=== PATIENT | female | born 1955 | race Caucasian/White ===

== ENCOUNTER 2021-08-11 07:03 | Day surgery (SDC) | payer OTHER ==
[~2021-08-11] VITALS: Ht 165.1 cm; Wt 68.2 kg
--- NOTE | ~2021-08-11 | OR ---
[facility] [address] [place], [place] [address] Draft DATE OF OPERATION: 08/11/2021 SURGEON: Clayton Wan MD PREOPERATIVE DIAGNOSIS: Chronic pansinusitis with polyposis. POSTOPERATIVE DIAGNOSIS: Chronic pansinusitis with polyposis. PROCEDURE: 1. Bilateral frontal ethmoidectomy, 29044-24. 2. Bilateral sphenoidotomies, 46111-19. 3. Bilateral maxillary antrostomies with removal of tissue, 71846-74. INDICATIONS: This 66-year-old female had sinus surgery by myself over 30 years ago. It was for the same reason. Progressively, the patient has suffered from asthma, allergies, congestion, polypoid degeneration and finely mason polyposis, which she could not breathe and had constant sinus infection or inflammation and exacerbation of asthma. The CT scan showed a picture of pansinusitis centered in the ethmoids and maxillary sinuses, but also sphenoid sinus blocked by the same process as well as the frontals. Because of medical failure to improve her lot, the patient was resubmitted to surgery. DESCRIPTION OF PROCEDURE: The patient was placed in the supine position, had an orotracheal intubation was placed under general anesthesia. Photographs were taken preoperative, intraoperative, postoperatively. Right side was the begun first after injecting 1 mL of 1% lidocaine with 1:100,000 epinephrine. The microdebrider was used right from the first to remove all polyps, which were accessible. The patient had a poor prognostic sign and number of the polyps were based on the septum. The posterior edge of the inferior turbinate also was shaved and then cauterized to try to help prevent any postoperative hemorrhage. The maxillary ostium was found and then previously enlarged was choked with polyps. Those polyps were removed with frontal sinus instruments as well as the curved blade of the microdebrider and the long graspers. The sphenoid sinus was plugged off, it was found with an ostium searcher and then the Kerrison forceps used to remove more bone in the smaller of the two sphenoid sinuses and removing tissue out of it. Backing from that posterior point to the anterior changing to a 70-degree scope, the base of skull was dissected out with the microdebrider with the various forceps. The frontal recess was then probed and all the polypoid mucosa and polyps removed from that area. No packing PATIENT NAME: LEANDER LEAL OPERATIVE REPORT DATE OF : 59 REPORT #: [id number] PHYSICIAN: CLAYTON WAN MD PCP: SCOTT THORPE REPORT IS CONFIDENTIAL AND NOT TO BE RELEASED WITHOUT AUTHORIZATION [facility] [address] [place], [place] [address] Draft was required. The patient was a very good clotter. Same thing was done on the left side. The larger sphenoid sinus was full of very inspissated asthma like secretions, which resembled half dried rubber cement. This was entirely debrided out of the sphenoid sinus and most of the rostrum of the sphenoid opened up so it was very white sphenoidotomy. The maxillary sinus again was entered more with the backbiting forceps were used to remove more of the fontanelle and removing polypoid mucosa and polyps from that medial wall of the maxillary sinus. Again, the frontal sinus instruments used to probe deep into the floor and breaking cysts and removing polypoid mucosa and polyps. The 70-degree scope finished the procedure dissecting the base of skull again with the microdebrider. The frontal sinus was found choked off of these with polyps and frontal sinus was entered this time with a Kerrison frontal sinus punch was used to remove a good portion of the beak and a very wide frontal sinusotomy was possible this time whereas that instrument did not exist at the time of her first surgery. Estimated Blood Loss was 150 mL. No packing required. The patient went to recovery in good condition. More polyps were shaved off the septum and cautery again of the inferior turbinates as well as the base of the polyps on the septum on the left side. The patient went to recovery in good condition. Clayton Wan MD [facility]/MARGUERITE /[id number] Copies: ~ PATIENT NAME: LEANDER LEAL OPERATIVE REPORT DATE OF : 59 REPORT #: [id number] PHYSICIAN: CLAYTON WAN MD PCP: SCOTT THORPE REPORT IS CONFIDENTIAL AND NOT TO BE RELEASED WITHOUT AUTHORIZATION
[~2021-08-11 07:03] MED LIST: ADVAIR 100-501 EACH INH
--- NOTE | 2021-08-11 10:28 | NUR ---
08/11/21 1028 Teresa Doll 1024 PATIENT ARRIVES TO PACU UNRESPONSIVE TO PAIN. ORAL AIRWAY IN PLACE. RN HOLDING JAW THRUST TO MAINTAIN AIRWAY. RESP EVEN AND UNLABORED WITH INTERVENTION.
--- NOTE | 2021-08-11 11:23 | NUR ---
PATIENT BACK FROM PACU. REPORT RECIEVED FROM LORETO GROVE. PATIENT IS ALERT AND ORIENTED. BREATHING EQUAL AND UNLABORED. VITAL SIGNS WNL. PATIENT DENIES ANY PAIN OR NASUEA. IV SITE IS PATENT. SURGICAL SITE IS CLEAN, DRY AND INTACT. GAUZE PAD BELOW NOSE FOR DRAINAGE. CALL LIGHT WITHIN REACH NO FUTHER NEEDS. NO QUESTIONS.
--- NOTE | 2021-08-11 12:09 | NUR ---
[facility] CALLED. TOBI PHARMCIST VERBAL ORDER GIVEN 1-2 TRAMADOL 50 MG EVERY SIX HOURS NEEDED. #8 COUNT. NO REFILLS.
--- NOTE | 2021-08-11 12:20 | NUR ---
PATIENT ASSESSMENT COMPLETE. ALERT AND ORIENTED. BREATHING EQUAL AND UNLABORED. VITAL SIGNS WNL. PATIENT DENIES ANY PAIN OR NASUEA. SURGICAL SITE IS CLEAN, DRY AND INTACT. IV IS SALINE LOCKED. PATIENT IS EATING AND DRINKING. NO QUESTIONS AT THIS TIME. CALL LIGHT WITHIN REACH NO FUTHER NEEDS.
--- NOTE | 2021-08-11 13:06 | NUR ---
PATIENT WAS UNSTEADY ON HER FEET. PATIENT WAS FEELING NASUEA. PATIENT BACK TO BED TO REST. THIS RN IN ROOM.
--- NOTE | 2021-08-11 13:30 | NUR ---
PATIENT LAYING IN BED WITH EYES CLOSED. RESP EVEN AND UNLABORED. DENIES PAIN AND NAUSEA. DRESSING IS CLEAN, DRY, AND INTACT. ONE BED RAIL UP. CALL LIGHT WITHIN REACH.
--- NOTE | 2021-08-11 13:50 | NUR ---
PATIENT WAS ABLE TO AMBULATE TO THE RESTROOM. PATIENT WAS ABLE TO VOID AND AMBULATE BACK. TOLERATED IT WELL. PATIENT WAS ABLE TO DRESS SELF. PATIENT DENIES ANY PAIN OR NAUSEA AT THIS TIME. PATIENT MET DISCHARGE CRITERA. IV D/C'D WNL. PATIENT WAS WHEELED OUT OF FACILITY TO PRIVATE AUTO.
== END 2021-08-11 13:50 | disposition home or self-care (01) ==
LOC: DS 07:03
PROVIDERS: ATTEND Otolaryngology
PROC: 09TU0ZZ Resection of Right Ethmoid Sinus, Open Approach (ICD-10-PCS; 2021-08-11)
PROC: 09CX8ZZ Extirpation of Matter from Left Sphenoid Sinus, Via Natural or Artificial Opening Endoscopic (ICD-10-PCS; 2021-08-11)
PROC: 09CW8ZZ Extirpation of Matter from Right Sphenoid Sinus, Via Natural or Artificial Opening Endoscopic (ICD-10-PCS; 2021-08-11)
PROC: 099R8ZZ Drainage of Left Maxillary Sinus, Via Natural or Artificial Opening Endoscopic (ICD-10-PCS; 2021-08-11)
PROC: 099Q8ZZ Drainage of Right Maxillary Sinus, Via Natural or Artificial Opening Endoscopic (ICD-10-PCS; 2021-08-11)
PROC: 09BR8ZX Excision of Left Maxillary Sinus, Via Natural or Artificial Opening Endoscopic, Diagnostic (ICD-10-PCS; 2021-08-11)
PROC: 09BQ8ZX Excision of Right Maxillary Sinus, Via Natural or Artificial Opening Endoscopic, Diagnostic (ICD-10-PCS; 2021-08-11)
PROC: 09TV0ZZ Resection of Left Ethmoid Sinus, Open Approach (ICD-10-PCS; principal; 2021-08-11 08:45)
DX: J32.4 Chronic pansinusitis (principal); J33.9 Nasal polyp, unspecified; J45.909 Unspecified asthma, uncomplicated
CPT/HCPCS: J0330; J2001; J2250; J2405; J2704; J7121

== ENCOUNTER 2024-02-11 06:15 | Day surgery (SDC) | payer MEDICARE, OTHER ==
[~2024-02-11] VITALS: Ht 165.1 cm; Wt 72.6 kg
[~2024-02-11 06:15] MED LIST changes: +MIDAZOLAM HCL 5 MG/5 ML VIAL IV PRN; +MULTIVITAMIN1 EACH PO; +VENTOLIN HFA18 GM INH; +fentaNYL citrate 100 MCG/2 ML VIAL IV PRN
[2024-02-11 06:32] VITALS: BP 126/73
[2024-02-11] MEDS ORDERED: MIDAZOLAM HCL 5 MG/5 ML VIAL ONE (06:39)
[2024-02-11] MEDS ORDERED: fentaNYL citrate 100 MCG/2 ML VIAL ONE (06:40)
[2024-02-11] MEDS ORDERED: IBLOOD GLUCOSE TEST STRIP 1 EA TEST VI PRN (07:00)
[2024-02-11] MEDS ORDERED: LIDOCAINE HCL 1% 5 ML SDV INJ ONE (07:00)
[2024-02-11] MEDS ORDERED: LACTATED RINGER'S 1,000 ML IV SCH (07:00)
--- NOTE | 2024-02-11 07:34 | NUR ---
PT NOT AVAILABLE FOR VISIT. PROVIDED PRAYER.
--- NOTE | 2024-02-11 08:28 | NUR ---
02/11/24 0829 Mike Silva 0815: PT ARRIVED TO PACU VIA STRETCHER. PT DROWSY BUT AROUSABLE. PT ARRIVED ON 2L NC WITH SATS AT 100%. PTS ABDOMEN SOFT AND NON DISTENDED AT THIS TIME. 0818: PT TIRTATED TO RA AT THIS TIME.
[2024-02-11 08:46] VITALS: BP 106/63
--- NOTE | 2024-02-12 09:32 | OR ---
[facility] [address] [place], [place] [address] Signed DATE OF OPERATION: 02/11/2024 SURGEON: Chris Ferguson MD PREOPERATIVE DIAGNOSIS: Colon screening. POSTOPERATIVE DIAGNOSIS: Sessile less than 1 cm polyp left colon. PROCEDURE: Total colonoscopy to cecum with cold snare polypectomy x1. ANESTHESIA: Intravenous sedation; fentanyl 150 mcg and Versed 7 mg. INDICATION: This 68-year-old white woman is a patient of ANDREA Mcgarry. She is here for colon screening. She last underwent colonoscopy in 2013, which was normal. She has no symptoms of bleeding diarrhea or constipation and no family history of colon cancer. She understands the risk of bleeding, infection, and perforation related to colonoscopy and wished to proceed. FINDINGS: The prep was excellent. Complete colonoscopy was undertaken of the cecum with full intubation of the cecum. There was one sessile polyp less than a cm in size noted at distal left colon. This was excised with cold snare technique. There were no other findings of note. DESCRIPTION OF PROCEDURE: The patient was brought to the endoscopy suite and placed in the lateral decubitus position, given intravenous sedation to the point of slurred speech and nystagmus. Digital rectal examination was normal. An Olympus video colonoscope was passed in the rectum and manipulated throughout the colon. Redundancy was noted in the transverse and right colon, but ultimately scope was advanced to the cecum with full intubation of the cecum. The ileocecal valve and appendiceal orifice were normal. Scope was withdrawn from that point and examination throughout showed no sign of abnormality into the distal left colon where a sessile polyp was noted. This was excised with cold snare technique. The specimen was passed Electronically Signed By: CHRIS FERGUSON MD 02/12/24 0932 PATIENT NAME: LEANDER LEAL OPERATIVE REPORT DATE OF : 59 REPORT #: [id number] PHYSICIAN: CHRIS FERGUSON MD PCP: SCOTT THORPE REPORT IS CONFIDENTIAL AND NOT TO BE RELEASED WITHOUT AUTHORIZATION [facility] [address] [place], [place] [address] Signed for pathology. Further withdrawal showed no other abnormalities. The rectum was normal. Scope was removed and the patient was taken to the recovery room in good condition. CONCLUDING DIAGNOSIS: Polyp x1. PLAN: Recommend repeat colonoscopy in 5 to 7 years based on current guidelines, sooner if symptoms should occur. She will return to the ongoing care of ANDREA Mcgarry. MD LINNETTE Jorge/MARGUERITE /[id number] cc: ANDREA Mcgarry Copies: SCOTT THORPE ~ Electronically Signed By: CHRIS FERGUSON MD 02/12/24 0932 PATIENT NAME: LEANDER LEAL OPERATIVE REPORT DATE OF : 59 REPORT #: [id number] PHYSICIAN: CHRIS FERGUSON MD PCP: SCOTT THORPE REPORT IS CONFIDENTIAL AND NOT TO BE RELEASED WITHOUT AUTHORIZATION
--- NOTE | 2024-02-13 17:54 | PATH ---
[facility] [address] [facility] [place], [place] [address] Signed SPECIMEN(S): A LEFT DESCENDING POLYP SPECIMEN SOURCE: A. LEFT DESCENDING POLYP CLINICAL HISTORY: 2013 normal colon FINAL PATHOLOGIC DIAGNOSIS: Left descending polyp: - Tubular adenoma (one fragment). JVR:clv MICROSCOPIC EXAMINATION: Histologic sections of all submitted blocks are examined by light microscopy. These findings, together with the gross examination, support the pathologic diagnosis. GROSS DESCRIPTION: The specimen, labeled and designated "Arpan, left descending polyp," is received in formalin and consists of one epperson soft tissue fragment, 0.7 cm. Entirely submitted in (A1). VB (under the direct supervision of a pathologist) The Gross Description was prepared using a voice recognition system. The report was reviewed for accuracy; however, sound-alike word errors, addition and/or deletions may occur. If there is any question about this report, please contact Client Services. PERFORMING LABORATORY: Technical component was performed by [facility], [address] [place] [id number] (CLIA# [id number]). Professional interpretation was performed by [facility] - [facility], [address] [place] [id number] (CLIA#: [id number]). Diagnostician: Zack Mena MD Pathologist Electronically Signed 02/13/2024 Copies: PATIENT NAME: LEANDER LEAL PATHOLOGY DATE OF : 59 REPORT #: [id number] PHYSICIAN: [facility] PCP: SCOTT THORPE REPORT IS CONFIDENTIAL AND NOT TO BE RELEASED WITHOUT AUTHORIZATION [address] [address] Signed ~ PATIENT NAME: LEANDER LEAL PATHOLOGY DATE OF : 59 REPORT #: [id number] PHYSICIAN: [facility] PCP: SCOTT THORPE REPORT IS CONFIDENTIAL AND NOT TO BE RELEASED WITHOUT AUTHORIZATION
== END 2024-02-11 09:00 | disposition home or self-care (01) ==
LOC: DS 06:15 → OPS 06:15 → DS 07:30 → OPS 07:30 → DS 14:00
PROVIDERS: ATTEND Surgery
PROC: 0DBH8ZZ Excision of Cecum, Via Natural or Artificial Opening Endoscopic (ICD-10-PCS; principal; 2024-02-11 07:30)
DX: Z12.11 Encounter for screening for malignant neoplasm of colon (principal); D12.4 Benign neoplasm of descending colon; J45.20 Mild intermittent asthma, uncomplicated; Z79.899 Other long term (current) drug therapy
CPT/HCPCS: 88305; 99153; G0500; J2250; J3010; J7121